=== PATIENT | female | born 1980 | race Caucasian/White ===

== ENCOUNTER 2019-09-30 20:10 | Emergency (ER) | payer MEDICAID ==
[~2019-09-30] VITALS: Ht 152.4 cm; Wt 74.8 kg
[2019-09-30 20:15] VITALS: Ht 152.4 cm; Wt 74.8 kg
[2019-09-30 23:22] VITALS: BP 123/79
== END 2019-09-30 23:22 | disposition home or self-care (01) ==
LOC: ED 20:10
DX: O9A.211 Injury, poisoning and certain other consequences of external causes complicating pregnancy, first trimester (principal); S09.90XA Unspecified injury of head, initial encounter; Z3A.01 Less than 8 weeks gestation of pregnancy; Z90.49 Acquired absence of other specified parts of digestive tract; W22.8XXA Striking against or struck by other objects, initial encounter; Y93.89 Activity, other specified; Y92.89 Other specified places as the place of occurrence of the external cause; Y99.8 Other external cause status

== ENCOUNTER 2019-10-04 15:19 | Emergency (ER) | payer MEDICAID ==
[~2019-10-04] VITALS: Ht 157.5 cm; Wt 62.1 kg
[2019-10-04 15:38] VITALS: Ht 157.5 cm; Wt 62.1 kg
[2019-10-04 16:53] LABS: BASOPHIL % 0.3 % (0-2); PLATELET COUNT 267 x10^3mcL (130-400); RED CELL DISTRIBUTION WIDTH 13.4 % (11.5-14.5)
[2019-10-04 17:39] VITALS: BP 117/43
== END 2019-10-04 17:39 | disposition home or self-care (01) ==
LOC: ED 15:19
PROVIDERS: Emergency Medicine
DX: O20.0 Threatened abortion (principal); Z90.49 Acquired absence of other specified parts of digestive tract
CPT/HCPCS: 36415

== ENCOUNTER 2019-10-21 14:33 | Emergency (ER) | payer MEDICAID ==
[~2019-10-21] VITALS: Ht 160 cm; Wt 59.0 kg
[2019-10-21 16:46] VITALS: Ht 160 cm; Wt 59.0 kg
[2019-10-21 17:27] LABS: BASOPHIL % 0.4 % (0-2); PLATELET COUNT 319 x10^3mcL (130-400); RED CELL DISTRIBUTION WIDTH 13.1 % (11.5-14.5)
[2019-10-21 18:51] VITALS: BP 109/72
== END 2019-10-21 18:51 | disposition home or self-care (01) ==
LOC: ED 14:33
PROVIDERS: Emergency Medicine
DX: O20.0 Threatened abortion (principal)
CPT/HCPCS: 36415

== ENCOUNTER 2019-11-11 17:44 | Emergency (ER) | payer MEDICAID ==
[~2019-11-11] VITALS: Ht 152.4 cm; Wt 64.0 kg
[2019-11-11 17:54] VITALS: Ht 152.4 cm; Wt 64.0 kg
[2019-11-11 19:27] LABS: PLATELET COUNT 272 x10^3mcL (130-400); RED CELL DISTRIBUTION WIDTH 12.7 % (11.5-14.5)
[2019-11-11 19:40] LABS: BAND NEUTROPHIL 0 % (0-10); BASOPHIL 0 % (0-2); MONOCYTE 8 % (0-7); PLATELET MORPHOLOGY PLATELETS NORMAL; SEGMENTED NEUTROPHILS 63 % (37-75); rbc morphology (normal/abnorm) NORMAL (NORMAL)
[2019-11-11 19:50] LABS: CARBON DIOXIDE 27.4 mmol/L (21-32); CHLORIDE SERUM 103 mmol/L (98-107); CREATININE SERUM 0.5 mg/dL (0.6-1.0); GFR1 > 60 mL/min; GLUCOSE SERUM 92 mg/dL (74-106); POTASSIUM SERUM 4.1 mmol/L (3.5-5.1); SODIUM SERUM 137 mmol/L (136-145)
[2019-11-11 19:55] LABS: ALBUMIN 3.6 g/dL (3.4-5.0); ALKALINE PHOSPHATASE 68 U/L (46-116); ALT/SGPT 46 U/L (14-59); AST/SGOT 17 U/L (15-37); BILIRUBIN TOTAL 0.2 mg/dL (0.20-1.00); TOTAL PROTEIN, SERUM 7.4 g/dL (6.4-8.2)
[2019-11-12 03:22] VITALS: BP 113/38
== END 2019-11-12 03:22 | disposition home or self-care (01) ==
LOC: ED 17:44
PROVIDERS: Emergency Medicine
DX: O03.4 Incomplete spontaneous abortion without complication (principal)
CPT/HCPCS: Q0092; Q0162

== ENCOUNTER 2020-05-05 18:55 | Emergency (ER) | payer MEDICAID ==
[~2020-05-05] VITALS: Ht 165.1 cm; Wt 66.2 kg
[2020-05-05 19:02] VITALS: Ht 165.1 cm; Wt 66.2 kg
[2020-05-05 20:02] LABS: BASOPHIL % 0.1 % (0-2); PLATELET COUNT 206 x10^3mcL (130-400)
[2020-05-05 21:16] LABS: microscopic required? YES; urine erythrocyte TRACE (NEGATIVE)
[2020-05-05 22:13] VITALS: BP 121/85
== END 2020-05-05 22:13 | disposition home or self-care (01) ==
LOC: ED 18:55
PROVIDERS: Specialist
DX: O20.0 Threatened abortion (principal); Z90.49 Acquired absence of other specified parts of digestive tract
CPT/HCPCS: Q0092